=== PATIENT | male | born 1980 | race Caucasian/White ===

== ENCOUNTER 2024-07-03 08:06 | Emergency (ER) | payer OTHER, SELFPAY ==
[2024-07-03 08:10] VITALS: BP 154/98
--- NOTE | 2024-07-03 08:28 | ED.GENMED ---
History of Present Illness
General
Chief Complaint: Breathing Problem
Source: patient
Exam Limitations: none
Time Seen by Provider: 07/03/24 08:21
History of Present Illness
History of Present Illness:
See MDM
Past History
Past History
ED Past Medical History: Asthma
ED Past Surgical History: Other (n/a)
Social History
Tobacco: Non-smoker
Personal:
Living: with family
Employment: Employed
Phy Exam
Physical Exam
Physical Exam:
See MDM
Scores
Heart Failure Risk
Heart Failure Risk Score: Not Applicable
Course
Orders/Labs/Results
Orders:
Orders
07/03/24 08:13
Electrocardiogram (*1) Urgent
Reason for Study: Shortness of Breath
EKG- Treatment ONCE
07/03/24 08:14
Complete Blood Count/With Diff Urgent
Comprehensive Metabolic Panel Urgent
07/03/24 08:18
EKG- Treatment ONCE
07/03/24 08:20
Troponin I Urgent
07/03/24 08:21
0.9% Sodium Chloride 1000 ml [Nss] 1,000 ml IV BOLUS
Acetaminophen [Tylenol] 1,000 mg PO NOW STA
Dexamethasone Sod Phosphate [Decadron] 10 mg IV NOW STA
Ipratropium/Albuterol Sulfate [Duoneb] 6 ml INH R NOW STA
Ketorolac [Toradol] 30 mg IV NOW STA
Lorazepam [Ativan] 0.5 mg IV NOW STA
07/03/24 08:24
CT Chest PE Study Urgent
Comment:
Reason For Exam: Covid, chest pain, sob
Abnormal Lab Results
07/03/24
08:14
Absolute Lymphs (auto) 0.4 L 10^3/uL
(1.2-3.4)
Neutrophils % 86.5 H %
(42.2-75.2)
Lymphocytes % 6.5 L %
(20.5-51.1)
Glucose 143 H mg/dl
(70-99)
07/03/24 08:14
07/03/24 08:14
Vital Signs
Initial and Last Documented VS:
Initial Vital Signs
Temp Pulse Resp BP Pulse Ox
100.1 F 113 18 154/98 98
07/03/24 08:10 07/03/24 08:10 07/03/24 08:10 07/03/24 08:10 07/03/24 08:10
Last Documented Vital Signs
Temp Pulse Resp BP Pulse Ox
100.1 F 113 12 154/98 94
07/03/24 08:10 07/03/24 10:00 07/03/24 10:00 07/03/24 08:10 07/03/24 10:00
MDM/Problems Addressed
Differential Diagnosis Includes:
HPI and MDM Narrative:
44-year-old male presenting for evaluation of shortness of breath and cough. Patient was recently diagnosed with COVID yesterday. He was started on albuterol and prednisone. Patient was instructed to go to the emergency department if symptoms
worsen. Patient states he feels like he cannot breathe. Patient was brought back and is clearly tachypneic. He is wheezing throughout. He does have a history of asthma.
Given his significant dyspnea, will rule out PE with a CT. Patient states chest x-ray was never performed. Patient is tachypneic and anxious. Will treat the asthma component with IV Decadron and DuoNebs. Will give IV Ativan and attempt to lower
his respiratory rate
Physical exam
General: Uncomfortable, tachycardia
HEENT: protecting airway
Neck: appears supple
CV: No evidence of cyanosis. Tachycardic
Resp: No accessory muscle use. Tachypnea. Diffuse expiratory wheezes throughout
Abd: Non-distended
Extremities: No deformities
Neuro: alert
Psych: Anxious
Skin: Intact
Problems Addressed including Acute and Chronic Conditions affecting care:
1. COVID bronchitis
Acuity: acute
Prognosis: unstable
Details: Patient requiring IV steroids and DuoNebs. Will rule out PE with CT
Updates
9:15 AM on reassessment, patient states he is feeling much better. Blood work without clinically significant abnormalities.
CT negative. Patient feels comfortable in home. Discussed finishing the course of steroids prescribed by urgent care
Differential Diagnosis (but not limited to):
Testing considered:
Drug therapy (if applicable): OTC meds, please see d/c instruction regarding Rx drugs
Amount and/or Complexity of Data Reviewed
Clinical info obtained from: Patient
External data reviewed: N/A
Labs I independently reviewed (but not limited to): Troponin normal
Radiology: The CT scan was personally and independently reviewed. In addition, official CT report reviewed.
Pulse Ox: not hypoxic
EKG independently reviewed: Sinus tachycardia, normal axis, no STEMI
Block Handler: N/A
Critical Care: The high probability of a clinically significant, sudden or life threatening deterioration of the pulmonary system(s) required my full and direct attention, intervention and personal management. The aggregate critical care time was 33
minutes. This time is in addition to time spent performing reported procedures but includes the following:
[x] Data Review and interpretation
[x] Patient assessment and monitoring of vital signs
[x] Documentation
[x] Medication orders and management
Risk of Complication:
Social Determinants of health: Good social support
Discussed with other providers: N/A
Escalation of Care includes Admit/Obs: After being observed in the Emergency Department, pt stable for discharge.
Occasional wrong word or 'sound a like' substitutions may have occurred due to the inherent limitations of voice recognition software. Read the chart carefully and recognize, using context, where substitutions have occurred.
*Critical Care Note
Total Time (30-74mins, 75-104mins- exclusive of procedures): Not Applicable
ED Attending Note
-
Portions of this chart may have been created with voice recognition software.� Occasional wrong word or��sound alike� substitutions may have occurred due to the inherent limitations of voice recognition software.
Discharge Plan
Departure
Patient Disposition: Home (Routine Discharge)
Date of Disposition: 07/03/24
Time of Disposition: 10:59
Patient with high blood pressure during this ER visit?: Yes
Discharge Problem:
Acute bronchitis
Instructions: Acute Bronchitis, Adult (DC), BLOOD PRESSURE
Prescriptions:
New
lorazepam [Ativan] 0.5 mg tablet
0.5 mg PO BID PRN (Reason: anxiety) Qty: 10 0RF
No Action
losartan-hydrochlorothiazide 1 TAB tablet
1 tab PO DAILY
montelukast 10 MG tablet
10 mg PO DAILY
Diltiazem
180 mg PO DAILY
Ibuprofen
3 tab PO DAILY
ibuprofen 200 MG tablet
600 mg PO QIDPRN PRN (Reason: pain) Qty: 1 0RF
oxycodone-acetaminophen 5 MG/325 MG tablet
1 tab PO Q4HPRN PRN (Reason: pain not relieved by ibuprofen) Qty: 15 0RF
Referrals:
Michaelle Kenney MD [Family Provider] -
Activity Restrictions/Additional Instructions:
Please return for any worsening symptoms.
You may return at any time if you have further concerns.
Please follow up with your doctor at the first available appointment, preferably this week.
Please finish the steroids prescribed by urgent care.
Thank you for choosing [facility].
Interventions
Interventions:
*Risk Screen - Suicide Last Done: 07/03/24 08:10
*General Assessment Last Done: 07/03/24 08:10
*Neglect/Abuse Screening Last Done: 07/03/24 08:10
ED- Fall Risk Assessment Last Done: 07/03/24 08:43
ED- Cardiac Assessment Last Done: 07/03/24 09:06
ED- Pulmonary Assessment Last Done: 07/03/24 09:06
Discharge Date and Time
Print Language: [place]
[2024-07-03 08:36] LABS: % Basophils 0.2 % (0-2); % Immature Granulocytes 0.3 % (0-0.5); % Lymphocytes 6.5 % (20.5-51.1); % Monocytes 6.5 % (1.7-9.3); % Neutrophils 86.5 % (42.2-75.2); Absolute Lymphocytes 0.4 10^3/uL (1.2-3.4); Absolute Monocytes 0.4 10^3/uL (0.1-0.6); Absolute Neutrophils 5.3 10^3/uL (1.4-6.5); Hematocrit 47.4 % (39.0-52.0); Hemoglobin 15.8 g/dL (13.0-18.0); Mean Corp Hgb Conc. 33.3 g/dL (33.0-37.0); Mean Corpuscular Hgb 29.3 pg (27.0-31.0); Mean Corpuscular Volume 87.9 fL (80.0-94.0); Mean Platelet Volume 9.9 fL (7.4-10.4); Nucleated Red Blood Cells % 0 % (-); Platelet Count 186 10^3/uL (130-400); Red Blood Cell Count 5.39 10^6/uL (4.70-6.10); White Blood Cell Count 6.1 10^3/uL (4.8-10.8)
[2024-07-03 08:43] VITALS: BMI 46.8
[2024-07-03] MEDS: NSS 1000 IV (08:45)
[2024-07-03] MEDS: TORADOL 30 MG IV (08:46)
[2024-07-03] MEDS: DUONEB 6 ML INH (08:46)
[2024-07-03] MEDS: TYLENOL 1000 MG PO (08:46)
[2024-07-03] MEDS: DECADRON 10 MG IV (08:46)
[2024-07-03] MEDS: ATIVAN 0.5 MG IV (08:47)
[2024-07-03 08:55] LABS: ALT (SGPT) 33 U/L (0-50); AST (SGOT) 25 U/L (17-59); Albumin 4.8 g/dl (3.5-5.0); Alkaline Phosphatase 48 U/L (38-126); Blood Urea Nitrogen 15 mg/dl (9-20); Calcium 9.1 mg/dl (8.4-10.2); Carbon Dioxide 26 mmol/L (22-30); Chloride 99 mmol/L (98-107); Estimated Creatinine Clearance > 125 ml/min; Glucose 143 mg/dl (70-99); Potassium 4.5 mmol/L (3.5-5.1); Sodium 136 mmol/L (135-145); Total Bilirubin 0.4 mg/dl (0.2-1.3); eGFR > 60.00
[2024-07-03 09:05] LABS: Troponin I < 0.012 ng/ml
[2024-07-03 10:35] VITALS: BP 116/86
[2024-07-03 11:00] VITALS: BP 135/84
== END 2024-07-03 11:08 | disposition home or self-care (01) ==
LOC: EMR 08:06
PROVIDERS: Emergency Medicine; EMERGENCY PHYSICIAN Student in an Organized Health Care Education/Training Program; FAMILY PHYSICIAN Internal Medicine
DX: J20.9 Acute bronchitis, unspecified (principal); U07.1 COVID-19; R06.82 Tachypnea, not elsewhere classified; I10 Essential (primary) hypertension; J45.909 Unspecified asthma, uncomplicated; G47.30 Sleep apnea, unspecified; Z87.891 Personal history of nicotine dependence; Z91.048 Other nonmedicinal substance allergy status
CPT/HCPCS: 99291; 96361; 94640; 96374; 96375 ×2; 71275; 80053; 84484; 85025; 93005; Q9967

== ENCOUNTER → 2024-07-19 06:29 | Outpatient (REF) | payer OTHER, SELFPAY | LOC: RAD 06:29 | PROVIDERS: ATTENDING PHYSICIAN Internal Medicine Nephrology; FAMILY PHYSICIAN Internal Medicine | DX: I10 Essential (primary) hypertension (principal) | CPT/HCPCS: 93975 ==